=== PATIENT | female | born 1970 | race Caucasian/White ===

== ENCOUNTER 2018-01-27 09:39 | Outpatient (CLI) | payer BC, SELFPAY ==
[2018-01-27 11:20] LABS: HCG Qual (Serum) Negative
== END 2018-01-27 09:59 ==
PROVIDERS: PCP Family Medicine; Visit Provider Nurse Practitioner Women's Health
DX: N92.6 Irregular menstruation, unspecified (principal)
CPT/HCPCS: 36415; 84703

== ENCOUNTER 2018-04-16 12:57 | Outpatient (CLI) | payer BC, SELFPAY ==
[2018-04-16 15:09] LABS: HCG Quant, Pregnancy 693 mIU/mL (1-3)
== END 2018-04-16 13:17 ==
PROVIDERS: PCP Family Medicine; Visit Provider Advanced Practice Midwife
DX: O20.0 Threatened abortion (principal)
CPT/HCPCS: 36415; 86850; 86900; 86901; 90384; 84702

== ENCOUNTER 2018-08-27 09:26 | Outpatient (REF) | payer BC, SELFPAY ==
--- NOTE | 2018-08-27 09:00 | PAPFT_PTH ---
PATIENT: Unique Bonilla LOC: [facility] U#:[id number] AGE/SX: 48/F ROOM: RE08/27/[address]: DIRK Armstrong : 1970 BED: DIS: 08/27/2018 SPEC #: [id number] RECD: 08/27/18 12:54 STATUS: TIM REQ #: [id number] ELPIDIO: 08/27/18 09:[address]: Aurelia Dash DEPT: [facility] Cytology RECD BY: Arin Fisher ENTERED: 08/27/18 12:55 SP TYPE: PAPFT OTHR DR: Yash Jaramillo MD Tissues: 1 - CX/ENDOCX FOR PAP SMEARS Procedures: PAP THIN PREP/[facility] Screening HPV DNA PROBE Comments: [id number]
== END 2018-08-27 09:46 ==
LOC: LBN 09:26
PROVIDERS: PCP Family Medicine; Visit Provider Nurse Practitioner Family
DX: Z12.4 Encounter for screening for malignant neoplasm of cervix (principal); Z11.51 Encounter for screening for human papillomavirus (HPV)
CPT/HCPCS: 88142; 87624

== ENCOUNTER 2018-10-25 01:35 | Outpatient (CLI) | payer BC, SELFPAY ==
--- NOTE | 2018-10-25 08:00 | DI.US_ITS ---
SYMPTOM/DIAGNOSIS: LLQ PAIN, R10.32 PELVIC ULTRASOUND: Transabdominal and transvaginal examination was performed. The uterus measures 10.8 cm long x 6.4 cm AP x 7.4 cm transverse. The endometrial stripe is at the upper limits of normal at 1.4 cm. No myometrial mass is present. The right ovary measures 2.5 x 2.1 x 2.7 cm. There are follicular cysts present. The largest measures 1.9 cm. There is normal blood flow to the right ovary. No evidence of torsion is present. The left ovary measures 3.7 x 2.2 x 2.9 cm There is normal blood flow. There is a 2.8 cm simple cyst on the left ovary. No evidence of torsion is present. There is a small amount of fluid in the lower uterine segment of the endometrial canal. Small cervical Nabothian cysts are present. IMPRESSION: Essentially unremarkable pelvic ultrasound.
== END 2018-10-25 01:55 ==
PROVIDERS: PCP Family Medicine; Visit Provider Naturopath
DX: R10.32 Left lower quadrant pain (principal); N83.292 Other ovarian cyst, left side
CPT/HCPCS: 76830; 76856

== ENCOUNTER 2021-04-26 15:13 | Outpatient (REF) | payer SELFPAY ==
[2021-04-26 14:10] LABS: Bilirubin Negative (Negative); Blood Moderate (Negative); Clarity Clear (Clear); Glucose Negative (Negative); Ketones Negative (Negative); Leukocyte Esterase Negative (Negative); Nitrite Negative (Negative); Urobilinogen 0.2 EU/dL (Up TO 0.2)
[2021-04-26 14:19] LABS: Bacteria Negative HPF (Negative); Casts Negative LPF (Negative); Crystals Negative HPF (Negative); Epithelial Cells Moderate HPF (Negative); Mucus Negative (Negative)
[2021-04-26 14:20] LABS: C & S Indicated? No/Sq. Contamination
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
--- OUTSIDE RECORDS SUMMARY | 2021-04-26 15:17 | XMS_ITS | Encounter Summary ---
:1970 External Reference #:[id number] Author Reason for Visit None recorded. Assessment and Plan Assessment Note 10 minutes spent reviewing symtpoms , counseling the patient on prevention of UTI, ordering tests, filling meds for po ssible UTI, and documenting the findings in the note. An additional 5 minutes was sp ent on dietary management, lifestyle management, options for medications and a plan to go to urgent care if decreased flow- burning, urgency and cloudy urine and fever. 1. Increased frequency of urinat ion ? frequent urination: care i nstructions ? urinalysis complete, refle x culture Discussion Note: None recorded. Plan of Care Patient Instructions urinary tincture- maude, Or. Grape , buchu, echinacea, uva ursi, , usnea, and corn silk 60 drops 4xday for 10 days- unless urine microscopic report is negative-email me with a number to call back over weekend for results- Reminders Provider Appointments None ? ? recorded. Lab Urinalysis Wilbert chadwick Complete, Reflex 04/26/2021 [facility] Lab Referral None ? ? recorded. Procedures None ? ? recorded. Surgeries None ? ? recorded. Imaging None ? ? recorded. Medications None recorded. Medications Administered None recorded. Vitals None recorded. Results Lab Results None recorded. Allergies None recorded. Problems Name Status Onset Date Source ? Palpitations Active 04/02/2018 ? Active 04/02/2018 ? Dietary Management Surveillance Active 04/02/2018 ? Procedures None recorded. Vaccine List Vaccine Type DTaP 05/18/1977 Hep B, adolescent/high risk 05/18/2014 MMR 05/18/1977 polio, unspecified formulation 05/18/1977 Social History Tobacco Smoking Status Never Smoker Do you have difficulty walking or N climbing stairs? Are you currently employed? N Are you able to care for yourself? Y Marital status Do you have any siblings? 2 How much tobacco do you chew? none What is your relationship status? Animal exposure? Y What is your level of alcohol None consumption? Education 4 Year College Are you deaf or do you have serious N difficulty hearing? Are you passively exposed to smoke? N Number of sexual partners 1 Legally blind in one or both eyes? N Do you have difficulty dressing or N bathing? How many children do you have? 4 Are you blind or do you have difficulty N seeing? Supplements multivitamin, vitamin C, B complex Do you have difficulty doing errands N alone? What was the date of your most recent 04/01/2018 tobacco screening? General stress level Low What is your exercise level? Occasional Have there been any changes to your N family or social situation? Live alone or with others? with others Are you sexually active? Y Do you have difficulty concentrating, N remembering or making decisions? What types of sporting activities do you none participate in? Hard of hearing or deaf in one or both N ears? Are there any occupational health risks none where you work? What is your level of caffeine None consumption? What is your occupation? homemaker Family History Relation Problem Onset Age of Age Notes Mother Depressive disorder 30 N/A (No Note s) Mother Anemia (No Information) N/A (No Notes) Mother Migraine (No Information) N/A (No Notes) Father Obesity 30 N/A (No Notes) Father Diabetes mellitus 40 N/A (No Notes) Father Sleep disorder (No Information) N/A (No Notes ) Sister Disorder of thyroid 30 N/A (No Note s) gland Functional Status No Impairment. Past Encounters 04/26/2021 Increased Frequency of Urination Brynn Eugene, [place]: [address] [place] [address], Ph. [phone] History of Present Illness Note: <div>urine flow decreased and some pressure in bladder</div><div>never had UTI before- </div><div>urgency, yes</div><div>flow today normal</div><div>drinking more fluids, started cranberry juice today</div><div>no cholls</div><div>no fever</div><div>no back pain</div><div>urine cloudy </div><div>no blood</div><div>
</div><div>she started a new appliance in mouth for PT- it seems to help her posture and her bowels moved better for first time in yrs</div><div>i told her i have no idea how that effects urinary output etc- but will order urine test to r/o uti and then go with structural changes and poss uterine fibroid</div><div&gt ;
</div><div> fibroid-not sure- never got a vaginal ultrasound reports she has had fibroid in past </div><div>urine order sent- </div><div>
</div> Review of Systems None recorded. Physical Exam None recorded.
== END 2021-04-26 15:14 | disposition home or self-care (01) ==
LOC: LBN 15:13
PROVIDERS: Visit Provider Naturopath
DX: R35.0 Frequency of micturition (principal)
CPT/HCPCS: 81003; 81015

== ENCOUNTER 2021-05-03 15:12 | Outpatient (REF) | payer SELFPAY | END 2021-05-03 15:13 | disposition home or self-care (01) | LOC: LBN 15:12 | PROVIDERS: Visit Provider Nurse Practitioner Family | DX: R30.0 Dysuria (principal) | CPT/HCPCS: 87077; 87086; 87186 ==